=== PATIENT | female | born 1990 ===

== ENCOUNTER 2017-11-04 18:24 | Inpatient (IN) | payer OTHER ==
[~2017-11-04] VITALS: Ht 162.6 cm; Wt 54.4 kg
[2017-11-09] MEDS ORDERED: OXYC1TAB9 PO (08:33)
== END 2017-11-09 14:34 | disposition home or self-care (01) | DRG 394 ==
LOC: SURH 18:24
PROVIDERS: Surgery
PROC: 8E0ZXY6 Isolation (ICD-10-PCS; 2017-11-04)
PROC: 3E0T3BZ Introduction of Anesthetic Agent into Peripheral Nerves and Plexi, Percutaneous Approach (ICD-10-PCS; 2017-11-05)
PROC: 0D9Q0ZX Drainage of Anus, Open Approach, Diagnostic (ICD-10-PCS; principal; 2017-11-05 09:00)
PROC: 0JB90ZX Excision of Buttock Subcutaneous Tissue and Fascia, Open Approach, Diagnostic (ICD-10-PCS; 2017-11-05 09:00)
DX: K61.0 Anal abscess (principal); C81.70 Other Hodgkin lymphoma, unspecified site; L02.31 Cutaneous abscess of buttock; Z92.21 Personal history of antineoplastic chemotherapy